=== PATIENT | female | born 1980 | race American Indian/Alaskan Native ===

== ENCOUNTER 2017-08-20 14:12 | Emergency (ER) | payer SELFPAY ==
[2017-08-20 16:28] LABS: Basophils % (Auto) 0.7 % (0.0-1.8); Eosinophils # (Auto) 0.1 K/mm3 (0.0-0.4); Eosinophils % (Auto) 1.9 % (0.0-4.3); Hematocrit 33.4 % (30.3-42.9); Hemoglobin 10.5 gm/dl (10.1-14.3); Lymphocytes # (Auto) 2.4 K/mm3 (1.2-5.4); Lymphocytes % (Auto) 37.8 % (13.4-35.0); Mean Corpuscular HGB Conc 32 % (30-34); Mean Corpuscular Hemoglobin 23 pg (28-32); Mean Corpuscular Volume 74 fl (79-97); Monocytes # (Auto) 0.4 K/mm3 (0.0-0.8); Monocytes % (Auto) 6.2 % (0.0-7.3); Platelet Count 235 K/mm3 (140-440); Red Cell Distribution Width 19.3 % (13.2-15.2)
[2017-08-20 16:55] LABS: Alanine Aminotransferase 17 units/L (7-56); Albumin 3.8 g/dL (3.9-5); BUN/Creatinine Ratio 17; Blood Urea Nitrogen 10 mg/dL (7-17); Calcium 9.3 mg/dL (8.4-10.2); Hemolysis Index 6
[2017-08-20 21:02] LABS: Bacteria,Urine 1+ /HPF (Negative); Bilirubin,Urine NEG (Negative); Blood,Urine NEG (Negative); Color,Urine Yellow (Yellow); Nitrite,Urine NEG (Negative); Protein,Urine <15 mg/dL mg/dL (Negative)
[2017-08-20 21:05] LABS: HCG Qualitative,Urine Negative (Negative); WBC,Urine < 1.0 /HPF (0.0-6.0)
--- NOTE | 2017-08-20 23:34 | Emergency Department Report ---
HPI - General Chief Complaint: Abdominal Pain Time Seen by Provider: 08/20/17 23:19 - HPI HPI: Room 26 The patient is a 36-year-old female presenting with a chief complaint of abdominal pain. Patient states she was told she had a hernia approximately 6 or 7 years ago and it has hurt her intermittently for the same amount of time. The patient states her pain is epigastric in nature and intermittent. Patient states past 2-3 days the pain has returned. Patient denies nausea/vomiting or constipation. The patient states her last bowel movement occurred today and was within normal limits. Patient denies any recent trauma. Patient denies any history of fever, vaginal discharge, hematuria or dysuria. The patient states she is taking Aleve but it has not helped during this episode. The patient gives her pain a score of 4-5/10 Location: Abdomen Duration: [See above] Quality: Pain Severity: 4-5/10 Modifying factors: [see above] Context: [see above] Mode of transportation: Public transportation ED Past Medical Hx - Past Medical History Previous Medical History?: No - Surgical History Past Surgical History?: No - Family History Family history: no significant - Social History Smoking Status: Current Every Day Smoker Substance Use Type: None (denies illicit drug use) - Medications Home Medications: Home Medications Medication Instructions Recorded Confirmed Last Taken Type traMADol [Ultram] 50 mg PO Q6HR PRN #20 tablet 08/21/17 Unknown Rx ED Review of Systems ROS: Stated complaint: STOMACH PAIN Other details as noted in HPI Constitutional: denies: fever Gastrointestinal: abdominal pain. denies: nausea, vomiting, constipation Genitourinary: denies: dysuria, discharge Musculoskeletal: back pain Physical Exam - Physical Exam Vital Signs: Vital Signs 08/20/17 08/20/17 15:57 22:52 Temperature 98.5 F 97.3 F L Pulse Rate 95 H 96 H Respiratory 16 18 Rate Blood Pressure 135/89 146/98 O2 Sat by Pulse 100 97 Oximetry Physical Exam: GENERAL: The patient is well-developed well-nourished female lying on stretcher not appearing to be in acute distress. [] HEENT: Normocephalic. Atraumatic. Extraocular motions are intact. Patient has moist mucous membranes. NECK: Supple. Trachea midline CHEST/LUNGS: Clear to auscultation. There is no respiratory distress noted. HEART/CARDIOVASCULAR: Regular. There is no tachycardia. There is no gallop rub or murmur. ABDOMEN: Abdomen is soft, with mild discomfort to palpation in the epigastric region. There is no hernia palpated when the patient supine however when she stands there appears to be an easily reducible supraumbilical hernia. Patient has normal bowel sounds. There is no abdominal distention. SKIN: There is no rash. There is no edema. There is no diaphoresis. NEURO: The patient is awake, alert, and oriented. The patient is cooperative. The patient has normal speech MUSCULOSKELETAL:There is no evidence of acute injury. ED Course Vital Signs 08/20/17 08/20/17 15:57 22:52 Temperature 98.5 F 97.3 F L Pulse Rate 95 H 96 H Respiratory 16 18 Rate Blood Pressure 135/89 146/98 O2 Sat by Pulse 100 97 Oximetry ED Medical Decision Making - Lab Data Result diagrams: 08/20/17 16:20 08/20/17 16:20 Laboratory Tests 08/20/17 08/20/17 08/20/17 16:20 16:20 Unknown WBC 6.3 RBC 4.50 Hgb 10.5 Hct 33.4 MCV 74 L MCH 23 L MCHC 32 RDW 19.3 H Plt Count 235 Lymph % (Auto) 37.8 H [place] % (Auto) 6.2 Eos % (Auto) 1.9 Baso % (Auto) 0.7 Lymph # 2.4 [place] # 0.4 Eos # 0.1 Baso # 0.0 Seg Neutrophils % 53.4 Seg Neutrophils # 3.4 Sodium 138 Potassium 4.3 Chloride 99.7 Carbon Dioxide 25 Anion Gap 18 BUN 10 Creatinine 0.6 L Estimated GFR > 60 BUN/Creatinine Ratio 17 Glucose 108 H Calcium 9.3 Total Bilirubin 0.20 AST 17 ALT 17 Alkaline Phosphatase 75 Total Protein 6.8 Albumin 3.8 L Albumin/Globulin Ratio 1.3 Urine Color Yellow Urine Turbidity Clear Urine pH 7.0 Ur Specific [place] 1.021 Urine Protein <15 mg/dl Urine Glucose (UA) Neg Urine Ketones Neg Urine Blood Neg Urine Nitrite Neg Urine Bilirubin Neg Urine Urobilinogen 2.0 Ur Leukocyte Esterase Neg Urine WBC (Auto) < 1.0 Urine RBC (Auto) 1.0 U Epithel Cells (Auto) 1.0 Urine Bacteria (Auto) 1+ Urine HCG, Qual Negative - Radiology Data Radiology results: report reviewed (CT abdomen and pelvis), image reviewed (CT abdomen and pelvis) FINAL REPORT EXAM: CT ABDOMEN PELVIS W CONTRAST HISTORY: Epigastric pain. History of hernia. TECHNIQUE: Axial CT images of the abdomen and pelvis were obtained, following the administration of intravenous contrast only. Axial delayed images and coronal and sagittal reformatted images were also obtained. No prior studies are available for comparison. FINDINGS: The liver, biliary tree, gallbladder, spleen, adrenal glands, and kidneys are unremarkable. Incidental note is made of a 4 mm focus of fat in the inferior pancreatic head, likely prominent fat lobule. Evaluation of the bowel is limited due to lack of oral contrast. There is a small hiatal hernia. There is moderate residual stool in the colon. There is no intestinal obstruction or free air. Of note, the appendix is normal. There are several supraumbilical ventral fat containing hernias at the midline, measuring up to 2.8 cm. No associated fluid or inflammatory stranding is seen to suggest incarceration. The abdominal aorta is normal in caliber. There is no pathologic abdominal or pelvic lymphadenopathy. There is no free or loculated fluid collection. There are multiple rounded calcified fibroids in the uterus, measuring up to 2.5 cm posteriorly on the left. There is a 1.5 cm rounded lesion in the right adnexa, with irregular curvilinear margins. This mild slightly represents involuting or partially ruptured cyst/follicle. There is adjacent mild right posterior pelvic free fluid. This can be further calculated with pelvic ultrasound, if clinically warranted. The urinary bladder is not fully distended, though grossly unremarkable. There is [id number] anterior marginal spurring at the anterior-superior aspect of T12. There are scattered foci of linear scarring or atelectasis at both lung bases. Mild superimposed dependent changes are seen posteriorly. IMPRESSION: 1. Small hiatal hernia. No intestinal obstruction or free air. 2. Normal CT appearance of the appendix. 3. Calcified fibroids. 1.5 cm probable involuting or partially ruptured right ovarian cyst, with mild adjacent posterior pelvic free fluid. This can be further characterized with ultrasound, as clinically warranted. 4. Several small supraumbilical ventral fat-containing hernias. Transcribed By: SANDRA Dictated By: LARRY MACIEL MD Electronically Authenticated By: LARRY MACIEL MD Signed Date/Time: 08/20/17 8915 DD/ 37 TD/TT: 08/20/172137 Critical care attestation.: If time is entered above; I have spent that time in minutes in the direct care of this critically ill patient, excluding procedure time. ED Disposition Clinical Impression: Ventral hernia, Abdominal pain Disposition: TO HOME OR SELFCARE Is pt being admited?: No Does the pt Need Aspirin: No Condition: Stable Instructions: Abdominal Pain (ED), Ventral Hernia (ED) Additional Instructions: Return to the emergency department immediately should you develop worsening symptoms, fever, inability to tolerate food or liquid or any other concerns. Prescriptions: traMADol [Ultram] 50 mg PO Q6HR PRN #20 tablet PRN Reason: Pain Referrals: PRIMARY CARE, [Primary Care Provider] - 3-5 Days PIERRE MARRERO MD [Staff Physician] - 3-5 Days (Dr. Marrero is a general surgeon. Please follow with him for further evaluation of your hernia) Time of Disposition: 02:00
[2017-08-21 00:29] VITALS: BP 124/81
--- NOTE | 2017-08-21 01:41 | Cat Scan Report ---
FINAL REPORT EXAM: CT ABDOMEN PELVIS W CONTRAST HISTORY: Epigastric pain. History of hernia. TECHNIQUE: Axial CT images of the abdomen and pelvis were obtained, following the administration of intravenous contrast only. Axial delayed images and coronal and sagittal reformatted images were also obtained. No prior studies are available for comparison. FINDINGS: The liver, biliary tree, gallbladder, spleen, adrenal glands, and kidneys are unremarkable. Incidental note is made of a 4 mm focus of fat in the inferior pancreatic head, likely prominent fat lobule. Evaluation of the bowel is limited due to lack of oral contrast. There is a small hiatal hernia. There is moderate residual stool in the colon. There is no intestinal obstruction or free air. Of note, the appendix is normal. There are several supraumbilical ventral fat containing hernias at the midline, measuring up to 2.8 cm. No associated fluid or inflammatory stranding is seen to suggest incarceration. The abdominal aorta is normal in caliber. There is no pathologic abdominal or pelvic lymphadenopathy. There is no free or loculated fluid collection. There are multiple rounded calcified fibroids in the uterus, measuring up to 2.5 cm posteriorly on the left. There is a 1.5 cm rounded lesion in the right adnexa, with irregular curvilinear margins. This mild slightly represents involuting or partially ruptured cyst/follicle. There is adjacent mild right posterior pelvic free fluid. This can be further calculated with pelvic ultrasound, if clinically warranted. The urinary bladder is not fully distended, though grossly unremarkable. There is [id number] anterior marginal spurring at the anterior-superior aspect of T12. There are scattered foci of linear scarring or atelectasis at both lung bases. Mild superimposed dependent changes are seen posteriorly. IMPRESSION: 1. Small hiatal hernia. No intestinal obstruction or free air. 2. Normal CT appearance of the appendix. 3. Calcified fibroids. 1.5 cm probable involuting or partially ruptured right ovarian cyst, with mild adjacent posterior pelvic free fluid. This can be further characterized with ultrasound, as clinically warranted. 4. Several small supraumbilical ventral fat-containing hernias.
== END 2017-08-21 02:24 | disposition home or self-care (01) ==
LOC: ED 14:12
DX: K43.9 Ventral hernia without obstruction or gangrene (principal); R10.13 Epigastric pain; F17.200 Nicotine dependence, unspecified, uncomplicated
CPT/HCPCS: 36415; 74177; 80053; 81001; 81025; 85025; 99284; Q9967